=== PATIENT | female | born 1965 | race Caucasian/White ===

== ENCOUNTER 2020-10-25 16:58 | Emergency (ER) | payer MEDICARE, MEDICAID ==
[~2020-10-25] VITALS: Ht 162.6 cm; Wt 62.5 kg
[2020-10-25] MEDS ORDERED: diazepam 5mg tablet PO ONE (20:05)
--- NOTE | 2020-10-25 20:20 | NUR ---
d/c blood pressure was 159/101 PA good made aware and gave instructions to follow up with pcp. Pt denies headache but is experiencing anxiety from being in the hospital.
[2020-10-25 20:25] VITALS: BP 159/101
== END 2020-10-25 20:27 | disposition home or self-care (01) ==
LOC: ER 16:59
DX: S16.1XXA Strain of muscle, fascia and tendon at neck level, initial encounter (principal); F41.9 Anxiety disorder, unspecified; F32.9 Major depressive disorder, single episode, unspecified; X50.0XXA Overexertion from strenuous movement or load, initial encounter; Y93.89 Activity, other specified; Y92.89 Other specified places as the place of occurrence of the external cause; Y99.8 Other external cause status
CPT/HCPCS: 93005; 99283

== ENCOUNTER 2021-01-10 22:24 | Emergency (ER) | payer MEDICARE, MEDICAID ==
[~2021-01-10] VITALS: Ht 162.6 cm; Wt 62.0 kg
[2021-01-11] MEDS ORDERED: SULF1TAB49 PO (00:30)
[2021-01-11] MEDS ORDERED: sulfamethoxazole/trimethoprim DS (800/160mg) tablet PO ONE (00:50)
[2021-01-11 01:04] VITALS: BP 135/87
== END 2021-01-11 01:06 | disposition home or self-care (01) ==
LOC: ER 22:24
DX: L03.221 Cellulitis of neck (principal); F41.9 Anxiety disorder, unspecified; F32.9 Major depressive disorder, single episode, unspecified; F15.90 Other stimulant use, unspecified, uncomplicated; Z88.1 Allergy status to other antibiotic agents; Z79.899 Other long term (current) drug therapy
CPT/HCPCS: 99283

== ENCOUNTER 2021-01-13 16:40 | Emergency (ER) | payer MEDICARE, MEDICAID ==
[~2021-01-13] VITALS: Ht 165.1 cm; Wt 64.1 kg
[~2021-01-13 16:40] MED LIST: SULF1TAB49 PO
[2021-01-13] MEDS ORDERED: HYDR-3965 PO (19:31)
--- NOTE | 2021-01-13 19:41 | NUR ---
LEX DESAI LANCED ABCESS ON RIGHT LOWER NECK I DID NOT VISUALIZE WOUND PRIOR TO APPLICATION OF 4X4 GAUZE DRESSING TO NECK
[2021-01-13] MEDS ORDERED: TETanus/Pertussis (Acell)/Diphther VAC/PF (Tdap-Adult) 0.5ml syringe IMVAC ONE (19:50)
[2021-01-13] MEDS ORDERED: HYDROcodone/acetaminophen 5mg/325mg tablet PO ONE (19:50)
--- NOTE | 2021-01-13 20:01 | NUR ---
DISCUSSED NORCO 5/325 MG WITH PATIENT. PATIENT VERBALIZED COMMON SIDE EFFECTS AND HOW AND WHEN TO TAKE HER NORCO PRESCRIPTION. PATIENT STATES THAT SHE HAS TAKEN NORCO BEFORE.
[2021-01-13 20:03] VITALS: BP 143/60
== END 2021-01-13 20:07 | disposition home or self-care (01) ==
LOC: ER 16:40
DX: L72.3 Sebaceous cyst (principal); R59.1 Generalized enlarged lymph nodes; L03.221 Cellulitis of neck; F41.9 Anxiety disorder, unspecified; F32.9 Major depressive disorder, single episode, unspecified; F15.90 Other stimulant use, unspecified, uncomplicated; Z20.3 Contact with and (suspected) exposure to rabies; Z88.1 Allergy status to other antibiotic agents; Z88.8 Allergy status to other drugs, medicaments and biological substances; Z79.2 Long term (current) use of antibiotics
CPT/HCPCS: 10060; 90471; 90715; 99283

== ENCOUNTER 2021-01-15 17:07 | Emergency (ER) | payer MEDICARE, MEDICAID ==
[~2021-01-15] VITALS: Ht 162.6 cm; Wt 64.1 kg
[~2021-01-15 17:07] MED LIST changes: +HYDR-3965 PO
[2021-01-15] MEDS ORDERED: ondansetron 4mg rapidly disintigrating tab PO ONE (18:05)
[2021-01-15] MEDS ORDERED: morphine 4 MG/ML inj SYRINge IM ONE (18:05)
[2021-01-15] MEDS ORDERED: CefTRIAXone 2gm/D5W 50ml BAG 50 ML IV ONE (18:20)
[2021-01-15] MEDS ORDERED: vancomycin/NS 1 GM ADD-VANTAGE 250 ML IV ONE (18:20)
[2021-01-15] MEDS ORDERED: normal saline 1000ML IV soln IVB ONE (18:20)
[2021-01-15 18:50] LABS: BASOPHILS # (AUTO) 0.1 X10'3 (0-0.2); BASOPHILS % (AUTO) 1.3 % (0-1); EOSINOPHILS # (AUTO) 0.2 X10'3 (0-0.9); EOSINOPHILS % (AUTO) 2.1 % (0-6); HEMATOCRIT 32.4 % (35.0-45.0); LYMPHOCYTES # (AUTO) 2.2 X10'3 (1.1-4.8); LYMPHOCYTES % (AUTO) 22.6 % (21-51); MEAN CORPUSCULAR HEMOGLOBIN 32.7 PG (27.0-31.0); MEAN CORPUSCULAR HGB CONC 33.8 g/dL (33.0-36.5); MEAN CORPUSCULAR VOLUME 96.7 FL (78-98); MEAN PLATELET VOLUME 6.8 FL (7.4-10.4); MONOCYTES # (AUTO) 0.7 X10'3 (0-0.9); MONOCYTES % (AUTO) 6.9 % (2-12); NEUTROPHILS # (AUTO) 6.6 X10'3 (1.8-7.7); NEUTROPHILS % (AUTO) 67.1 % (42-75); PLATELET COUNT 334 X10'3 (140-440); RED BLOOD COUNT 3.35 X10'6 (4.20-5.60); RED CELL DISTRIBUTION WIDTH 13.8 % (11.5-14.5); WHITE BLOOD COUNT 9.8 X10'3 (4.5-11.0)
[2021-01-15 19:11] LABS: ALANINE AMINOTRANSFERASE 36 U/L (12-78); ALBUMIN 3.2 G/DL (3.4-5.0); ALBUMIN/GLOBULIN RATIO 0.8 (1.1-1.5); ALKALINE PHOSPHATASE 122 IU/L (46-116); ANION GAP 8 (8-16); ASPARTATE AMINO TRANSFERASE 22 U/L (10-37); BILIRUBIN,TOTAL 0.2 MG/DL (0.1-1.0); BLOOD UREA NITROGEN 13 MG/DL (7-18); BUN/CREATININE RATIO 10.7 (6.6-38.0); CALCIUM 8.9 MG/DL (8.5-10.1); CHLORIDE 102 MMOL/L (99-107); CREATININE 1.21 MG/DL (0.40-0.90); GLUCOSE 94 MG/DL (70-104); POTASSIUM 3.8 MMOL/L (3.5-5.1); SODIUM 136 MMOL/L (135-145); TOTAL CARBON DIOXIDE 25.9 MMOL/L (24-32); TOTAL PROTEIN 7.4 G/DL (6.4-8.2); eGFR 47 ML/MIN
[2021-01-15] MEDS ORDERED: iohexol 300mg/ml 100ml inj. ONE (20:14)
[2021-01-15 21:06] VITALS: BP 150/88
[2021-01-15] MEDS ORDERED: UMEC1DIS INH (21:15)
[2021-01-15] MEDS ORDERED: QUET100T33 PO (21:18)
[2021-01-15] MEDS ORDERED: CLON-369 PO (21:18)
[2021-01-15] MEDS ORDERED: LEVO100T9 PO (21:18)
[2021-01-15] MEDS ORDERED: magnesium hydroxide 30ml (MOM) UD suspension PO PRN (21:20)
[2021-01-15] MEDS ORDERED: HYDROcodone/acetaminophen 5mg/325mg tablet PO PRN (21:20)
[2021-01-15] MEDS ORDERED: potassium Cl 40MEQ/1/2NS 520ml 520 ML IV PRN ×2 (21:20)
[2021-01-15] MEDS ORDERED: acetaminophen 325mg tablet PO PRN (21:20)
[2021-01-15] MEDS ORDERED: magnesium 4gm in 100ml NS 100 ML IV PRN (21:20)
[2021-01-15] MEDS ORDERED: mag hydrox/Alum hydrox/simeth 30ml oral suspension PO PRN (21:20)
[2021-01-15] MEDS ORDERED: potassium Cl 20 mEq SR tablet PO PRN ×2 (21:20)
[2021-01-15] MEDS ORDERED: ondansetron/PF 4mg/2ml inj IV PRN (21:20)
[2021-01-15] MEDS ORDERED: magnesium 2GM in 50ml NS 50 ML IV PRN (21:20)
[2021-01-15] MEDS ORDERED: morphine 2 MG/ML inj. syringe IV PRN (21:20)
[2021-01-15] MEDS ORDERED: magnesium Cl slow-release 64mg tablet PO PRN (21:20)
[2021-01-15] MEDS ORDERED: nicotine 21mg patch - 24 hr TD ONE (21:40)
--- NOTE | 2021-01-15 22:06 | NUR ---
GAVE REPORT TO MATILDA LEE AT [facility] ER
--- NOTE | 2021-01-15 22:21 | NUR ---
REPORT GIVEN TO DEBBIE CONVERSION DEVELOPER WITH [facility]. PT TRANSFERRED TO [facility] ER
[2021-01-16] MEDS ORDERED: K and/or MAG REPLACEMENT MC SCH (08:00)
[2021-01-16] MEDS ORDERED: CefTRIAXone/D5W-Rocephin 1gm 50 ML IV SCH (08:00)
== END 2021-01-15 22:24 | disposition short-term general hospital (02) ==
LOC: ER 17:08 → UNDOADMIN 21:20 → ED HOLD 21:20 → UNDODISIN 22:19
DX: L03.811 Cellulitis of head [any part, except face] (principal); R59.0 Localized enlarged lymph nodes; L02.11 Cutaneous abscess of neck; F41.9 Anxiety disorder, unspecified; F32.9 Major depressive disorder, single episode, unspecified; F15.90 Other stimulant use, unspecified, uncomplicated; Z88.1 Allergy status to other antibiotic agents; Z88.8 Allergy status to other drugs, medicaments and biological substances; Z79.899 Other long term (current) drug therapy
CPT/HCPCS: 36415; 70491; 80053; 83605; 83735; 84145; 85025; 87040; 96365; 96368; 96372; 96375; 99285; J0696; J2270; J3370; J7030; Q9967; G0378

== ENCOUNTER 2021-10-26 14:55 | Emergency (ER) | payer MEDICARE, MEDICAID ==
[~2021-10-26] VITALS: Ht 162.6 cm; Wt 53.2 kg
[~2021-10-26 14:55] MED LIST changes: +CLON-369 PO; -HYDR-3965 PO; +LEVO100T9 PO; +QUET100T34 PO; -SULF1TAB49 PO; +UMEC1DIS INH
[2021-10-26 15:20] VITALS: BP 147/95
== END 2021-10-26 20:29 | disposition left against medical advice (07) ==
LOC: ER 14:56
DX: F31.9 Bipolar disorder, unspecified (principal); Z53.21 Procedure and treatment not carried out due to patient leaving prior to being seen by health care provider

== ENCOUNTER 2021-10-27 07:55 | Emergency (ER) | payer MEDICARE, MEDICAID ==
[~2021-10-27] VITALS: Ht 165.1 cm; Wt 54.5 kg
[2021-10-27 07:58] VITALS: BP 134/100
[2021-10-27 08:37] LABS: BASOPHILS # (AUTO) 0.1 X10'3 (0-0.2); BASOPHILS % (AUTO) 0.9 % (0-1); EOSINOPHILS # (AUTO) 0.1 X10'3 (0-0.9); EOSINOPHILS % (AUTO) 1.5 % (0-6); HEMATOCRIT 39.5 % (35.0-45.0); HEMOGLOBIN 13.7 g/dl (12.0-16.0); LYMPHOCYTES # (AUTO) 1.5 X10'3 (1.1-4.8); LYMPHOCYTES % (AUTO) 22.3 % (21-51); MEAN CORPUSCULAR HEMOGLOBIN 31.8 PG (27.0-31.0); MEAN CORPUSCULAR HGB CONC 34.8 g/dL (33.0-36.5); MEAN CORPUSCULAR VOLUME 91.4 FL (78-98); MEAN PLATELET VOLUME 7.3 FL (7.4-10.4); MONOCYTES # (AUTO) 0.4 X10'3 (0-0.9); MONOCYTES % (AUTO) 5.7 % (2-12); NEUTROPHILS # (AUTO) 4.6 X10'3 (1.8-7.7); NEUTROPHILS % (AUTO) 69.6 % (42-75); PLATELET COUNT 274 X10'3 (140-440); RED BLOOD COUNT 4.32 X10'6 (4.20-5.60); RED CELL DISTRIBUTION WIDTH 13.4 % (11.5-14.5); WHITE BLOOD COUNT 6.7 X10'3 (4.5-11.0)
[2021-10-27 09:06] LABS: ALANINE AMINOTRANSFERASE 23 U/L (12-78); ALBUMIN 4.1 G/DL (3.4-5.0); ALKALINE PHOSPHATASE 87 IU/L (46-116); ANION GAP 7 (8-16); BILIRUBIN,TOTAL 0.4 MG/DL (0.1-1.0); BLOOD UREA NITROGEN 20 MG/DL (7-18); BUN/CREATININE RATIO 24.7 (6.6-38.0); CALCIUM 9.5 MG/DL (8.5-10.1); CHLORIDE 106 MMOL/L (99-107); CREATININE 0.81 MG/DL (0.40-0.90); GLUCOSE 93 MG/DL (70-104); POTASSIUM 3.8 MMOL/L (3.5-5.1); SODIUM 144 MMOL/L (135-145); TOTAL CARBON DIOXIDE 30.7 MMOL/L (24-32); TOTAL PROTEIN 8.1 G/DL (6.4-8.2); eGFR 74 ML/MIN
[2021-10-27 09:21] LABS: ASPARTATE AMINO TRANSFERASE 17 U/L (10-37)
[2021-10-27 09:22] LABS: ETHANOL < 0.010 GM/DL (0.0-0.010)
== END 2021-10-27 14:30 | disposition left against medical advice (07) ==
LOC: ER 07:55
DX: R44.0 Auditory hallucinations (principal); Z53.21 Procedure and treatment not carried out due to patient leaving prior to being seen by health care provider
CPT/HCPCS: 36415; 80053; 80320; 84443; 85025